=== PATIENT | female | born 1970 | race Two or more races ===

== ENCOUNTER 2019-06-04 19:13 | Emergency (ER) | payer SELFPAY ==
[2019-06-04] MEDS ORDERED: NORMAL SALINE 1000 ML 1,000 ML IV ONE ×2 (20:50→21:27)
[2019-06-04] MEDS ORDERED: DIPHENHYDRAMINE HCL 50 MG/ML VIAL IV ONE (20:50)
[2019-06-04] MEDS ORDERED: PROCHLORPERAZINE EDISYLATE INJ 10 MG/2 ML VIAL IV ONE (20:50)
--- NOTE | 2019-06-04 20:52 | ER Document Report ---
ED Medical Screen (RME) - General Stated Complaint: VOMITING/HEADACHE/CHEST PAIN Time Seen by Provider: 06/04/19 20:44 Notes: Presents with headache to the frontal area of her head that started around noon today. Patient reports that she has had nausea and vomiting x6 episodes today. Patient reports that the vomiting has caused her stomach to start hurting. Patient states she has had pain similar to this when she had a Yoselin-James tear. I have greeted and performed a rapid initial assessment of this patient. A comprehensive ED assessment and evaluation of the patient, analysis of test results and completion of the medical decision making process will be conducted by additional ED providers. TRAVEL OUTSIDE OF THE [place] IN LAST 30 DAYS: No - Related Data Allergies/Adverse Reactions: No Known Allergies Allergy (Unverified 06/24/15 19:39) Past Medical History Neurological Medical History: Denies: Hx Seizures Psychiatric Medical History: Denies: Hx Depression Past Surgical History: Denies: Hx Hysterectomy Physical Exam - Vital signs Vitals: Temp Pulse Resp BP Pulse Ox 97.7 F 76 20 120/80 95 06/04/19 20:08 06/04/19 20:08 06/04/19 20:08 06/04/19 20:08 06/04/19 20:08 - General General appearance: Alert In distress: Mild Notes: Patient with upper abdominal tenderness Course - Vital Signs Vital signs: Temp Pulse Resp BP Pulse Ox 97.7 F 76 20 120/80 95 06/04/19 20:08 06/04/19 20:08 06/04/19 20:08 06/04/19 20:08 06/04/19 20:08
--- NOTE | 2019-06-04 21:29 | ER Document Report ---
ED General - General Chief Complaint: Upper Abdominal Pain Stated Complaint: VOMITING/HEADACHE/CHEST PAIN Time Seen by Provider: 06/04/19 20:44 Primary Care Provider: [facility] [Provider Group] - Follow up in 3-5 days Notes: Patient is a 48-year-old female that comes emergency department for chief complaint of a headache that started at noon today, she states she started having throbbing pain behind her eyes and in the front of her head, she states she started getting nauseated, light sensitive, and began vomiting. She has vomited 8 times. She states now her stomach hurts as well. She denies fever, head injury, neck pain, dizziness, passing out. She states she tried to take an [id number] pain reliever and Anjali-Rock but this did not work. She denies any daily medications, she states once she was hospitalized for an upper GI bleeding was found to have a Yoselin-James tear, she states it started out with a headache and vomiting as well. She denies vomiting blood today. She denies any surgeries or diagnosed medical history otherwise. Family is at bedside. Patient is primarily Telugu-speaking, has multiple children of hers here today and asked for them to interpret for her. TRAVEL OUTSIDE OF THE [place] IN LAST 30 DAYS: No - Related Data Allergies/Adverse Reactions: No Known Allergies Allergy (Unverified 06/24/15 19:39) Past Medical History - General Information source: Patient - Social History Smoking Status: Never Smoker Frequency of alcohol use: None Drug Abuse: None Lives with: Family Family History: Reviewed & Not Pertinent Patient has suicidal ideation: No Patient has homicidal ideation: No Neurological Medical History: Reports: Hx Migraine. Denies: Hx Seizures Psychiatric Medical History: Denies: Hx Depression Surgical Hx: Negative Past Surgical History: Denies: Hx Hysterectomy - Immunizations Immunizations up to date: Yes Hx Diphtheria, Pertussis, Tetanus Vaccination: Yes Review of Systems - Review of Systems Constitutional: No symptoms reported EENT: No symptoms reported Cardiovascular: No symptoms reported Respiratory: No symptoms reported Gastrointestinal: See HPI Genitourinary: No symptoms reported Female Genitourinary: No symptoms reported Musculoskeletal: No symptoms reported Skin: No symptoms reported Hematologic/Lymphatic: No symptoms reported Neurological/Psychological: See HPI Physical Exam - Vital signs Vitals: Temp Pulse BP Pulse Ox 97.7 F 76 120/80 93 06/04/19 20:07 06/04/19 20:07 06/04/19 20:07 06/04/19 20:07 - Notes Notes: GENERAL: Alert, mildly uncomfortable HEAD: Normocephalic, atraumatic. EYES: Pupils equal, round, and reactive to light. Extraocular movements intact, some photophobia ENT: Oral mucosa moist, tongue midline. Oropharynx unremarkable. Dental caries over the right lower posterior molars without surrounding erythema or swelling, no noted tenderness. Airway patent. Nares patent, no nasal septal hematoma, TM's intact. NECK: Full range of motion. Supple. Trachea midline. LUNGS: Clear to auscultation bilaterally, no wheezes, rales, or rhonchi. No respiratory distress. HEART: Regular rate and rhythm. No murmur ABDOMEN: Soft, non-tender. Non-distended. Bowel sounds present in all 4 quadrants. GENITOURINARY: Deferred EXTREMITIES: Moves all 4 extremities spontaneously. No edema, normal radial and dorsalis pedis pulses bilaterally. No cyanosis. BACK: no cervical, thoracic, lumbar midline tenderness. No saddle anesthesia, normal distal neurovascular exam. Moves all extremities in full range of motion. NEUROLOGICAL: Alert and oriented x3. Normal speech. Cranial nerves II through XII grossly intact. PSYCH: Normal affect, normal mood. SKIN: Warm, dry, normal turgor. No rashes or lesions noted. Course - Re-evaluation Re-evalutation: Patient mildly uncomfortable appearing, has photophobia on initial exam. Normal neurological exam. Normal physical exam otherwise. Vital signs unremarkable. Work-up from triage reviewed. CBC unremarkable, chemistry unremarkable, urinalysis showing elevated specific gravity, bacteria, some white blood cells. CT of the head negative, chest x-ray unremarkable. On reevaluation after treatment for headache patient is improved but headache has not completely resolved. Given Toradol and Reglan additionally, afterwards headache completely resolved. Patient is smiling, appreciative, requesting discharge home. Patient is stating that she keeps having intermittent pain over an area where she has a dental fracture but there is no current pain or obvious infection of the area. Treating for teeth/UTI, discussed work-up, follow-up for headaches, return precautions with patient and family at length. They state understanding and agreement. Stable time of discharge. - Vital Signs Vital signs: Temp Pulse Resp BP Pulse Ox 98.1 F 73 20 107/63 97 06/05/19 02:10 06/05/19 02:10 06/05/19 02:10 06/05/19 02:10 06/05/19 02:10 - Laboratory Result Diagrams: 06/04/19 21:40 06/04/19 21:40 Laboratory results interpreted by me: 06/04/19 06/04/19 06/04/19 21:11 21:40 21:40 Lymph % (Auto) 12.0 L Seg Neutrophils % 82.4 H Glucose 125 H AST 57 H Total Protein 8.6 H Urine Protein 30 H Urine Blood SMALL H Urine Urobilinogen 2.0 H Discharge - Discharge Clinical Impression: Pain, dental Headache Qualifiers: Headache type: unspecified Headache chronicity pattern: acute headache Intractability: not intractable Qualified Code(s): R51 - Headache Vomiting Qualifiers: Vomiting type: unspecified Vomiting Intractability: non-intractable Nausea presence: with nausea Qualified Code(s): R11.2 - Nausea with vomiting, unspecified Disposition: HOME, SELF-CARE Additional Instructions: Your imaging of the head is normal, your work-up is reassuring except for a urinary tract infection. Take Zanaflex as prescribed because of your teeth and the urinary tract infection. Please follow-up with a dentist for additional management, see referral listed below. Please follow-up with primary care in regards to your headaches, your evaluation is most consistent with a migraine headache. You have been prescribed nausea medication and headache medication to take as needed. Return if you worsen including return to uncontrolled vomiting, fever, severe worsening headache, swelling of the face, or any other concerning or worsening symptoms. [facility] [address] [facility], [id number] Prescriptions: Butalb/Acetaminophen/Caffeine [Fioricet (50-325-40 mg) Tablet] 1 tab PO Q4HP PRN #20 tab PRN Reason: Cephalexin Monohydrate [Keflex 500 mg Capsule] 500 mg PO BID 7 Days #14 capsule Metoclopramide HCl [Reglan] 5 mg PO ASDIR PRN #30 tablet PRN Reason: Referrals: [facility] [Provider Group] - Follow up in 3-5 days
[2019-06-04 21:31] LABS: APPEARANCE,URINE SLIGHTLY-CLOUDY; BILIRUBIN,URINE NEGATIVE (NEGATIVE); COLOR,URINE YELLOW; GLUCOSE, URINE NEGATIVE (NEGATIVE); KETONES,URINE NEGATIVE (NEGATIVE); LEUKOCYTE ESTERASE,URINE NEGATIVE (NEGATIVE); NITRITE,URINE NEGATIVE (NEGATIVE); PROTEIN,URINE 30 mg/dL (NEGATIVE); URINE SPECIFIC GRAVITY 1.029
[2019-06-04 22:06] LABS: ABSOLUTE LYMPHOCYTES (AUTO) 1.1 10^3/uL (0.5-4.7); ABSOLUTE MONOCYTES (AUTO) 0.5 10^3/uL (0.1-1.4); ABSOLUTE NEUT (AUTO) 7.7 10^3/uL (1.7-8.2); BASOPHILS % (AUTO) 0.3 % (0-2); EOSINOPHILS % (AUTO) 0.4 % (0-6); HEMATOCRIT 44.6 % (36.0-47.0); HEMOGLOBIN 15.4 g/dL (12.0-15.5); MEAN CORPUSCULAR HEMOGLOBIN 29.7 pg (27.0-33.4); MEAN CORPUSCULAR HGB CONC 34.5 g/dL (32.0-36.0); MEAN CORPUSCULAR VOLUME 86 fl (80-97); MONOCYTES % (AUTO) 4.9 % (3-13); PLATELET COUNT 228 10^3/uL (150-450); RED CELL DISTRIBUTION WIDTH 13.5 % (11.5-14.0); SEGMENTED NEUTROPHILS % (AUTO) 82.4 % (42-78); TOTAL CELLS COUNTED % (AUTO) 100 %; WHITE BLOOD COUNT 9.3 10^3/uL (4.0-10.5)
--- NOTE | 2019-06-04 22:09 | RADIOLOGY REPORT (SQ) ---
EXAM DESCRIPTION: XR ABDOMEN SUPINE AND ERECT WITH CHEST (ABD ACUTE SERIES) COMPLETED DATE/TME: 06/04/2019 20:49 CLINICAL HISTORY: 48 years Female ,epig pain, n/v, hx Yoselin chacon tear COMPARISON: None. TECHNIQUE: Frontal view chest x-ray and two views of the abdomen. FINDINGS: The cardiomediastinal silhouette appears unremarkable. No consolidating infiltrates or pleural effusions. No free air is identified beneath the hemidiaphragms. No dilated loops of bowel to suggest obstruction. Moderate fecal material in the colon. Phleboliths in the pelvis. IMPRESSION: No acute plain film abnormality is identified.
--- NOTE | 2019-06-04 22:10 | RADIOLOGY REPORT (SQ) ---
EXAM DESCRIPTION: CT HEAD WITHOUT IV CONTRAST COMPLETED DATE/TME: 06/04/2019 20:50 CLINICAL HISTORY: 48 years Female CARMICHAEL COMPARISON: None. TECHNIQUE: Contiguous axial CT images obtained through the brain without IV contrast. This exam was performed according to our department optimization program which includes automated exposure control, adjustment of the mA and/or kv according to patient size and/or use of iterative reconstruction technique. FINDINGS: The ventricles and sulci are within normal limits for the patient's age. No midline shift or mass effect. No masses identified. No acute intracranial hemorrhage. No fluid or significant mucosal thickening in the visualized paranasal sinuses. No depressed calvarial fractures. IMPRESSION: No acute intracranial abnormality is identified.
--- NOTE | 2019-06-04 22:14 | EKG REPORT ---
SEVERITY:- NORMAL ECG - SINUS RHYTHM : Confirmed by: Rebecca Kuhn 04-Jun-2019 22:13:52
[2019-06-04 22:25] LABS: ALBUMIN 4.7 g/dL (3.5-5.0); ALKALINE PHOSPHATASE 124 U/L (38-126); ANION GAP 11 (5-19); ASPARTATE AMINO TRANSFERASE 57 U/L (14-36); BILIRUBIN,DIRECT 0.2 mg/dL (0.0-0.4); BILIRUBIN,TOTAL 0.8 mg/dL (0.2-1.3); BLOOD UREA NITROGEN 17 mg/dL (7-20); CARBON DIOXIDE 26 mmol/L (22-30); CHLORIDE 104 mmol/L (98-107); GLUCOSE 125 mg/dL (75-110); TOTAL PROTEIN 8.6 g/dL (6.3-8.2)
[2019-06-05] MEDS ORDERED: KETOROLAC TROMETHAMINE INJ/PF 30 MG/1 ML SDV IV ONE (00:22)
[2019-06-05] MEDS ORDERED: METOCLOPRAMIDE HCL INJ/PF 10 MG/2 ML SDV IV ONE (00:22)
[2019-06-05] MEDS ORDERED: CEPHALEXIN 500 MG CAPSULE PO ONE (02:04)
[2019-06-05 02:18] VITALS: BP 107/63
== END 2019-06-05 02:26 | disposition home or self-care (01) ==
LOC: ER 19:13
DX: R51 Headache (principal); N39.0 Urinary tract infection, site not specified; K02.9 Dental caries, unspecified; K08.89 Other specified disorders of teeth and supporting structures; R11.2 Nausea with vomiting, unspecified; H53.149 Visual discomfort, unspecified; R10.10 Upper abdominal pain, unspecified; Z87.19 Personal history of other diseases of the digestive system
CPT/HCPCS: 93005; 99284; 96361; 96374; 96375; 36415; 83690; 85025; 80053; 81001; 74022; 70450; 93010; J1200; J1885; J2765; J0780; J7030